=== PATIENT | female | born 1995 | race Caucasian/White ===

== ENCOUNTER 2024-10-29 19:42 | Emergency (ER) | payer MEDICAID ==
[~2024-10-29] VITALS: Ht 160 cm; Wt 69.0 kg
[2024-10-29 20:06] VITALS: O2SAT 99
[2024-10-30] MEDS ORDERED: LIDO-53 TP (00:03)
[2024-10-30] MEDS ORDERED: IBUP-2029 MT (00:03)
[2024-10-30] MEDS ORDERED: BO1 TP (00:03)
[2024-10-30 01:01] VITALS: TEMP 36.9; O2SAT 100
[2024-10-30 01:03] VITALS: PULSE 62
[2024-10-30] MEDS: IBUPROFEN 600MG TABLET PO ONE (01:03)
[2024-10-30] MEDS: TETANUS, DIPHTHERIA, PERTUSSIS VAC/PF 0.5ML (>10YR OLD) IM ONE (01:03)
[2024-10-30 01:04] VITALS: BP 120/79; RESP 14
[2024-10-30] MEDS: LIDOCAINE 5% PATCH TOP SCH (01:04)
== END 2024-10-30 01:10 | disposition home or self-care (01) ==
LOC: ER 19:42
DX: S61.210A Laceration without foreign body of right index finger without damage to nail, initial encounter (principal); S39.012A Strain of muscle, fascia and tendon of lower back, initial encounter; Z23 Encounter for immunization; Z79.899 Other long term (current) drug therapy; X58.XXXA Exposure to other specified factors, initial encounter; Y93.89 Activity, other specified; Y92.89 Other specified places as the place of occurrence of the external cause; Y99.8 Other external cause status
CPT/HCPCS: 99283; 90715; 90471; Z7610